=== PATIENT | male | born 1990 | race Caucasian/White ===

== ENCOUNTER 2025-06-28 12:01 | Emergency (ER) | payer MEDICAID, SELFPAY ==
[2025-06-28 12:05] VITALS: BP 124/70; PULSE 46; RESP 16; TEMP 36.6; O2SAT 96
--- NOTE | 2025-06-28 12:53 | DI.RAD_ITS ---
Exam(s) XR KNEE RT 3V AP,LAT,KOFI EXAM: XR KNEE RT 3V AP,LAT,KOFI CLINICAL HISTORY: right knee. TECHNIQUE: 2D digital imaging was performed. COMPARISON: No exams were available for comparison FINDINGS: 3 views No evidence of acute fracture or obvious joint effusion. No joint space narrowing nor osteochondral defects evident. No radiopaque foreign bodies. Bone density normal. No osseous lesions. IMPRESSION: No acute osseous findings in the right knee. DATA REPOSITORY: RADIATION DOSE DELIVERED:
[2025-06-28] MEDS: Lidocaine 1% Pres-Free W/EPI 1/200,000 30 ML VIAL IJ (14:26)
--- NOTE | 2025-06-28 15:36 | ED.GENADUL_ITS ---
Discharge Plan Disposition Patient Disposition: Home Discharge Details Clinical Impression: Knee laceration Primary Care Provider: Unknown,Unknown ED Provider: Wanda No Home Meds and New Rx's Prescriptions: No Action No Known Home Meds Discharge Instructions Instructions: Taking care of cuts, scrapes, and puncture wounds Additional Instructions: Keep wound clean and dry Apply bacitracin topically twice a day keep knee brace in place during day for the next few days allow to air dry after 3 day time period occassionally throughout the day return with spreading redness, fever, worsening pain motrin/tylenol as needed for pain you may lightly range knee after 7 day time period return for suture removal in 14 days She develop redness, swelling, worsening pain or fever please return for reassessment earlier Discharge Data Discharge Date/Time-TO BE ENTERED AT DEPARTURE: 06/28/25 14:30 HPI General Date/Time Provider Initiated Documentation: 06/28/25 12:33 . HPI Narrative: This 35-year-old male presents with report of right knee injury. He was using a saw to trim trees and accidentally cut his knee. Tetanus is up-to-date in 2020. Was ambulatory after the event occurred denies any strength or sensation change. Related Data Home Medications ?Medication ?Instructions ?Recorded ?Confirmed Unknown [No Known Home Meds] 06/28/25 0 06/28/25 Allergies Allergy/AdvReac Type Severity Reaction Status Date / Time No Known Allergies Allergy Verified 06/28/25 12:08 General Stated Complaint: Laceration NILDA: 4 Exam Narrative Exam Narrative: Right knee with laceration at the 11 o'clock position flexion extension intact relatively superficial into adipose tissue only no evidence of joint involvement no visible ligament or tendinous injury no visible flexion extension intact neurovascularly intact Course Vital Signs Vital signs: Vital Signs Temperature 36.6 C 06/28/25 12:05 Pulse 46 L 06/28/25 12:05 Respiratory Rate 16 06/28/25 12:05 Blood Pressure 124/70 06/28/25 12:05 Pulse Oximetry 96 06/28/25 12:05 Temperature 36.6 C 06/28/25 12:05 Temperature Source Oral 06/28/25 12:05 Pulse 46 L 06/28/25 12:05 Respiratory Rate 16 06/28/25 12:05 Blood Pressure 124/70 06/28/25 12:05 Blood Pressure Position Sitting 06/28/25 12:05 Pulse Oximetry 96 06/28/25 12:05 Oxygen Delivery Method Room Air 06/28/25 12:05 Oxygen Flow Rate 0 06/28/25 12:05 Pain Level 2 06/28/25 12:05 Procedure Laceration Laceration 1: Date of Procedure: 06/28/25 Time of procedure: 15:37 Provider that performed the procedure: Wanda Bauer Time Out Performed: Yes Patient Consented: Verbally Site: lower extremity Side (If applicable): right Skin layer closed with: nylon Number of sutures:: 7 Technique: vertical mattress Procedure Description/Note: 1.5 inch laceration Medical Decision Making Results: Right knee x-ray per radiology interpretation my review without acute abnormality Assessment and plan: Patient with right knee laceration, we have discussed copiously x-ray was reviewed and laceration was subsequently sutured 7 sutures placed for removal in 12 to 14 days knee immobilizer supplied return precautions reviewed and patient expressed understanding. Tetanus was updated in 2020. I did consider intra-articular involvement, however given that there is no obvious gas in the joint and the laceration is relatively superficial I think this is unlikely, also considered patellar fracture although x-ray is reassuring PFSH All Active Problems (Updated 06/28/25 @ 14:17 by LITTLE Stuart) Knee laceration (Acute) Social History Smoking/Tobacco Use Status: Current-Occasional Tobacco Type: cigarettes Smoking risk assessment performed?: Yes Alcohol Intake: current Alcohol Intake frequency: holidays/special occasions only Drug use: Daily Substance use type: marijuana Do you feel safe at home: Yes Do you feel safe in your relationship?: Yes
== END 2025-06-28 14:30 | disposition home or self-care (01) ==
PROVIDERS: Emergency Provider Physician Assistant; PCP Physician Assistant
DX: S81.011A Laceration without foreign body, right knee, initial encounter (principal); W26.0XXA Contact with knife, initial encounter
CPT/HCPCS: 99283 ×2; 90471; 12001; 73562; J2004

== ENCOUNTER 2025-07-12 10:12 | Emergency (ER) | payer MEDICAID, SELFPAY ==
[2025-07-12 10:14] VITALS: BP 121/74; PULSE 93; RESP 16; TEMP 36.6; O2SAT 97
--- NOTE | 2025-07-12 10:25 | W.ED.GENAD ---
Discharge Plan Disposition Patient Disposition: Home Condition: Good Discharge Details Clinical Impression: Visit for suture removal Primary Care Provider: Carrie Lawton ED Provider: Bola Ramirez Home Meds and New Rx's Prescriptions: No Action No Known Home Meds Discharge Instructions Additional Instructions: Your sutures have been removed. Please keep the area clean and dry. You can apply triple antibiotic ointment to the removed suture sites. Please moisturize the area daily. If you notice any worsening of your symptoms, or any new symptoms such as vomiting, diarrhea, fever, chills, shortness of breath, chest pain, numbness, weakness, or fainting , please return immediately to the emergency department for reevaluation. Please follow up with your primary care provider as soon as possible for reassessment and reevaluation. As always, it was a pleasure participating in your medical care today. Referrals: Carrie Lawton [Primary Care Provider, Medicine] HPI General Date/Time Provider Initiated Documentation: 07/12/25 10:13. HPI Narrative: Patient is here for suture removal. It was 14 days ago. Patient has been doing well with no drainage or redness or discharge. No fever or chills. No pain. Related Data Home Medications ?Medication ?Instructions ?Recorded ?Confirmed Unknown [No Known Home Meds] 06/28/25 07/12/25 Allergies Allergy/AdvReac Type Severity Reaction Status Date / Time No Known Allergies Allergy Verified 07/12/25 10:17 General Stated Complaint: SutureRem NILDA: 4 Exam Narrative Exam Narrative: Incision site is clean dry and intact. No redness or drainage. Wound edges have been excellently reapproximated. No dehiscence whatsoever, no signs of wound compromise. Skin is healing notably well. Course Vital Signs Vital signs: Vital Signs Temperature 36.6 C 07/12/25 10:14 Pulse 93 H 07/12/25 10:14 Respiratory Rate 16 07/12/25 10:14 Blood Pressure 121/74 07/12/25 10:14 Pulse Oximetry 97 07/12/25 10:14 Temperature 36.6 C 07/12/25 10:14 Temperature Source Oral 07/12/25 10:14 Pulse 93 H 07/12/25 10:14 Respiratory Rate 16 07/12/25 10:14 Blood Pressure 121/74 07/12/25 10:14 Pulse Oximetry 97 07/12/25 10:14 Oxygen Delivery Method Room Air 07/12/25 10:14 Oxygen Flow Rate 0 07/12/25 10:14 Medical Decision Making Patient is here for suture removal. It was 14 days ago. Patient has been doing well with no drainage or redness or discharge. No fever or chills. No pain. Incision site is clean dry and intact. No redness or drainage. Wound edges have been excellently reapproximated. No dehiscence whatsoever, no signs of wound compromise. Skin is healing notably well. Sutures were removed x 7, no complications. Knee is excellently healed. Will recommend continued triple antibiotic ointment and moisturizer as needed. I have extensively reviewed the treatment plan and discharge instructions with the patient. I have addressed all patient concerns at this time. The patient was made aware of what symptoms to monitor for that would warrant a return to the emergency department. Discussed the plan with the patient, they demonstrate verbal understanding and agreement with our assessment and plan at this time. The documentation in this chart was dictated using [employer] dictation software. Please excuse any dictation errors. PFSH All Active Problems (Updated 07/12/25 @ 10:26 by Bola Ramirez DO) Visit for suture removal (Acute) Knee laceration (Acute) Social History Smoking/Tobacco Use Status: Current-Occasional Tobacco Type: cigarettes Smoking risk assessment performed?: Yes Alcohol Intake: current Alcohol Intake frequency: holidays/special occasions only Drug use: Daily Substance use type: marijuana Do you feel safe at home: Yes Do you feel safe in your relationship?: Yes
== END 2025-07-12 10:29 | disposition home or self-care (01) ==
PROVIDERS: Emergency Provider Student in an Organized Health Care Education/Training Program; PCP Physician Assistant
DX: Z48.02 Encounter for removal of sutures (principal)
CPT/HCPCS: 99281; 99282; 15853